=== PATIENT | male | born 1965 | race Caucasian/White ===

== ENCOUNTER 2025-03-06 09:14 | Emergency (ER) | payer SELFPAY ==
[2025-03-06] VITALS (30 sets, daily range): BP systolic 75–149; BP diastolic 55–102; PULSE 34–89; RESP 13–38; TEMP 36.2–36.4; O2SAT 68–100
--- NOTE | ~2025-03-06 | XR_ITS ---
CHEST RADIOGRAPH CLINICAL HISTORY: ETT placement . COMPARISON: None available TECHNIQUE: Single portable view of the chest. FINDINGS The superior cardiomediastinal silhouette is widened, possibly secondary to positioning. Endotracheal tube is identified with its tip at the thoracic inlet. Approximately 5 cm above the base of the deirdre. The remainder of the cardiomediastinal silhouette is otherwise unremarkable. 3 cm well-circumscribed asymmetry adjacent to the the right pulmonary hilum, possibly vascular in [place]. Coarse interstitial lung markings are identified. The right costophrenic sulcus is not included. The remainder of the lungs are clear. Significant gaseous distention of the stomach is visualized below the left hemidiaphragm. IMPRESSION: Endotracheal tube with its tip at the thoracic inlet approximately 5 cm above the base of the deirdre. Advancement of approximately 2 cm may be performed for optimal radiographic placement. Asymmetry adjacent to the right pulmonary hilum with coarse interstitial lung markings. Significant gaseous distention of the stomach, as detailed above. Reviewed, dictated and finalized at location A. IMPRESSION: Endotracheal tube with its tip at the thoracic inlet approximately 5 cm above t he base of the deirdre. Advancement of approximately 2 cm may be performed for optimal radiographic rylie cement. Asymmetry adjacent to the right pulmonary hilum with coarse interstitial lung m arkings. Significant gaseous distention of the stomach, as detailed above.
--- NOTE | ~2025-03-06 | CT_ITS ---
EXAMINATION: CT brain wo con DATE: 03/06/2025 09:47 INDICATION: Left-sided weakness, combative and confused. TECHNIQUE: Computed tomography (CT) of the head was performed without intravenous contrast. Sagittal and coronal reconstructions were performed. The mA was adjusted according to patient size. Iterative reconstruction technique was employed. The dose-length product was 1362.00 mGy-cm. COMPARISON: None FINDINGS: Large amount of motion artifact on the initial sequence. Moderate amount of motion artifact on the re peated sequences. Overall this mild to moderately limits evaluation. No acute intracranial hemorrhage , acute infarction or abnormal extra axial fluid collection. Ventricles are normal and symmetric. No mass/mass effect. The orbits, paranasal sinuses and mastoid air cells are normal. IMPRESSION: 1. No evident acute intracranial process. Evaluation is mild to moderately limited by motion artifact on the initial and repeat imaging. Reviewed, dictated and finalized at location A. IMPRESSION: 1. No evident acute intracranial process. Evaluation is mild to moderately limi aman by motion artifact on the initial and repeat imaging.
[2025-03-06] MEDS: SODIUM CHLORIDE 0.9% IV 1,000 ML 999 ML (09:20)
[2025-03-06] MEDS: LORazepam INJ (*CRX) 2 MG/ML VIAL IV PUSH (09:20)
--- NOTE | 2025-03-06 09:35 | ECG_ITS ---
Test Date: 2025-03-06 09:34:27 Measurements Intervals [place] Rate: 53 P: 55 AL: 177 QRS: 73 QRSD: 89 T: 68 QT: 480 QTc: 451 Interpretive Statements SINUS BRADYCARDIA VOLTAGE CRITERIA FOR LVH [MEETS CRITERIA IN ONE OF: R(aVL), S(V1), R(V5), R(V5/V6)+S(V1)] PROLONGED QT INTERVAL+ NONSPECIFIC T WAVE ABNORMALITY No previous ECG available for comparison Electronically Signed On 03-07-2025 10:58:55 CDT by Sharron Rosa M.D.
[2025-03-06 09:42] LABS: Basophils Absolute Auto 0.07 K/mm3 (0.00-0.10); Basophils Percent Auto 0.6 % (0.0-1.0); Eosinophils Absolute Auto 0.28 K/mm3 (0.02-0.50); Eosinophils Percent Auto 2.3 % (1.0-6.0); Hematocrit 44.7 % (40.0-54.0); Hemoglobin 14.1 g/dL (14.0-18.0); Immature Granulocyte Absolute 0.06 K/mm3 (0.00-0.00); Immature Granulocyte Percent A 0.5 % (0.0-0.0); Lymphocytes Absolute Auto 2.37 K/mm3 (1.10-4.50); Lymphocytes Percent Auto 19.8 % (18.0-42.0); Mean Corpuscular HGB Conc 31.5 g/dL (32-36); Mean Corpuscular Hemoglobin 29.3 pg (27.0-31.0); Mean Corpuscular Volume 92.7 fL (78.0-102.0); Mean Platelet Volume 9.5 fl (8.7-11.0); Monocytes Percent Auto 5.8 % (2.0-11.0); Platelet Count Result 195 K/mm3 (150-420); Red Blood Count 4.82 M/mm3 (4.70-6.10); Red Cell Distribution Width 12.7 % (11.6-14.4)
[2025-03-06] MEDS: SODIUM CHLORIDE 0.9% IV 1,000 ML 999 ML IV CONT ×2 (09:47→10:50)
[2025-03-06 09:49] LABS: Partial Thromboplastin Time 26.1 Sec (23.9-30.70); Prothrombin Time 11.3 Seconds (9.50-12.1)
[2025-03-06] MEDS: MORPHINE SULFATE (*CRX) 4 MG/ML INJ IV PUSH (09:52)
[2025-03-06 09:54] LABS: Ethanol < 10 mg/dL (<10)
[2025-03-06 10:17] LABS: Add Urine Microscopic? YES; Appearance Urine Clear (Clear); Bilirubin Urine Negative (Negative); Blood Urine 1+ (Negative); Color Urine Yellow (Yellow); Glucose Urine UA 1+ (Negative); Ketones Urine Negative (Negative); Leukocyte Esterase Ur Negative LEU/UL (Negative); Nitrate Urine Negative (Negative); Protein Urine 3+ (Negative); Urobilinogen Urine 0.2 mg/dL (0.2-1.0)
[2025-03-06 10:23] LABS: WBC Urine None seen /hpf (0-3)
[2025-03-06 10:24] LABS: Bacteria Urine Trace /hpf
[2025-03-06 10:28] LABS: Alanine Aminotransferase 20 U/L (6-50); Albumin Level 3.5 g/dL (3.5-5.1); Alkaline Phosphatase 48 U/L (38-126); Anion Gap 6 mmol/L (4-12); Aspartate Amino Transferase 33 U/L (17-59); Bilirubin,Total 0.7 mg/dL (0.2-1.3); Blood Urea Nitrogen 13 mg/dL (9-20); Calcium 8.4 mg/dL (8.4-10.2); Carbon Dioxide 22 mmol/L (22-30); Chloride 112 mmol/L (98-107); Estimated Glomerular Filt Rate > 60; Glucose 193 mg/dL (65-110); Osmolality Calculated 295 mOsm/kg (285-295); Potassium 3.8 mmol/L (3.4-5.0); Sodium 140 mmol/L (137-145); Total Protein 6.2 g/dL (6.3-8.2)
[2025-03-06 10:36] LABS: Base Excess ABG -3.9 mmol/L (0-2); Carboxyhemoglobin 2.2 % (0-1.5); HCO3 ABG 21.4 mmol/L (23-29); Methemoglobin ABG 0.3 % (0-1.5); Oxygen Saturation ABG 92.6 % (95-97); Oxyhemoglobin 90.3 % (94-100); PCO2 ABG 39.8 mmHg (35-45); PO2 ABG 60.9 mmHg (80-90); Reduced Hemoglobin 7.2 % (0-1.5); pH ABG 7.35 (7.35-7.45)
--- NOTE | 2025-03-06 10:36 | ED_ITS ---
HPI - Neuro Symptoms/Deficit General Chief Complaint: Suspected CVA Stated Complaint: Stroke Time Seen by Provider: 03/06/25 09:34 Source: patient and EMS Mode of arrival: EMS Limitations: altered mental status, physical limitation and clinical condition History of Present Illness HPI Narrative: this is a 59-year-old male with some difficult to elicit past medical history is a smoker, denies alcohol abuse no recent surgeries. The patient stepped outside of his trailer and was doing some stretching activities and had chest pain and felt brown with left-sided weakness arm and leg EMS was called to the scene. Currently the patient is aggressive and combative claustrophobic with any procedures. There is no fever chills, vitals are stable with a blood pressure of 103/68 with respiratory rate of 20 satting at 97% on room air. Patient has no nausea vomiting does have a gaze to the to the right with left arm left leg weakness. Onset (ago): hour(s) Timing confirmed by: other Location: left arm and left leg History of same: No Severity: severe Quality: weak and tingling Relieving factors: none Exacerbating factors: none Context: sudden onset Related Data Allergies Allergy/AdvReac Type Severity Reaction Status Date / Time Unable to Assess Allergy Verified 03/06/25 10:07 Review of Systems 2 Review of Systems: All systems reviewed & are unremarkable except as noted in HPI and below PMFSH Past Medical History Medical History Tobacco abuse Exam 2 Const: General: well developed, alert, awake, anxious, combative and confusion HENMT: Head: normal to inspection Face and sinus: normal facial exam M outh: Yes Normal oral and palatal mucosa present Eyes: Other: pupils right 4+ and sluggish in left is 3 and brisk Chest: Chest palpation & inspection: normal inspection of the chest and normal palpation of entire chest wall Resp: Effort & Inspection: normal respiratory effort and able to speak in complete sentences Cardio: Palpation: normal PMI Rate: regular rate Rhythm: regular rhythm Heart sounds: S1 normal heart sound present and S2 normal heart sound present : General: Yes bimanual renal exam normal bilaterally Back/Spine/Pelvis: Back: no CVA tenderness Skin: General skin exam: normal color and no rashes or lesions noted Neuro: General: absent sensation to monofilament and confusion Speech: A bnormal speech present Gait exam (Neuro): Unable to assess gait Motor exam (neuro): Pronator motor function present Extrem: General: normal to inspection and capillary refill normal Other: Left arm left leg weakness Psych: Speech and movement: Clear speech present Affect: Anxious affect present Course Course Emergency Course: patient with some stroke symptoms with left arm left leg weakness with NIH stroke scale of 8, patient aggressive and combative and claustrophobic did have a CT of the brain performed which shows no acute intracranial abnormalities or hemorrhage. Vitals at 103/68 with a febrile respiratory rate of 15 O2 sats of 95% on room air. PT INR of 11 and 1.0 with PTT of 26, patient did receive IV fluids along with Ativan 2mg IV and 4mg of morphine. And tPA was started on patient. Spoke to table machine operator and Neurology at [facility] that accepted the patient it will be flying via arch. Vital Signs Vital signs: Vital Signs Temperature 36.2 C L 03/06/25 10:26 Pulse Rate 72 03/06/25 10:26 Respiratory Rate 20 03/06/25 10:26 Blood Pressure 102/85 03/06/25 10:26 Pulse Oximetry 100 03/06/25 10:26 Oxygen Delivery Room Air 03/06/25 10:26 Temperature 36.2 C L 03/06/25 10:26 Pulse Rate 72 03/06/25 10:26 Respiratory Rate 20 03/06/25 10:26 Blood Pressure 102/85 03/06/25 10:26 Pulse Oximetry 100 03/06/25 10:26 Oxygen Delivery Room Air 03/06/25 10:26 MDM - Neuro Symptoms/Deficit Lab Data 03/06/25 09:35 03/06/25 09:35 Labs: Lab Results 03/06/25 03/06/25 Range/Units 09:34 09:35 WBC 12.0 H (4.8-10.8) K/mm3 RBC 4.82 (4.70-6.10) M/mm3 Hgb 14.1 (14.0-18.0) g/dL Hct 44.7 (40.0-54.0) % MCV 92.7 (78.0-102.0) fL MCH 29.3 (27.0-31.0) pg MCHC 31.5 L (32-36) g/dL RDW 12.7 (11.6-14.4) % Plt Count 195 (150-420) K/mm3 MPV 9.5 (8.7-11.0) fl Immature Gran % (Auto) 0.5 H (0.0-0.0) % Neut % (Auto) 71.0 H (50.0-70.0) % Lymph % (Auto) 19.8 (18.0-42.0) % [place] % (Auto) 5.8 (2.0-11.0) % Eos % (Auto) 2.3 (1.0-6.0) % Baso % (Auto) 0.6 (0.0-1.0) % Lymph # (Auto) 2.37 (1.10-4.50) K/mm3 [place] # (Auto) 0.70 (0.10-0.90) K/mm3 Eos # (Auto) 0.28 (0.02-0.50) K/mm3 Baso # (Auto) 0.07 (0.00-0.10) K/mm3 Abs Immat Gran (auto) 0.06 H (0.00-0.00) K/mm3 Absolute Neuts (auto) 8.50 H (1.70-7.20) K/mm3 Absolute Nucleated RBC 0.00 (0.00-0.00) K/mm3 Nucleated RBC % 0.0 (0-0.0) % PT 11.3 (9.50-12.1) Seconds INR 1.0 APTT 26.1 (23.9-30.70) Sec Sodium 140 (137-145) mmol/L Potassium 3.8 (3.4-5.0) mmol/L Chloride 112 H (98-107) mmol/L Carbon Dioxide 22 (22-30) mmol/L Anion Gap 6 (4-12) mmol/L BUN 13 (9-20) mg/dL Creatinine 0.92 (0.7-1.3) mg/dL Estim Creat Clear Calc Not Reportable Estimated GFR > 60 (59 - ) Glucose 193 H (65-110) mg/dL Calculated Osmolality 295 (285-295) mOsm/kg Calcium 8.4 (8.4-10.2) mg/dL Total Bilirubin 0.7 (0.2-1.3) mg/dL AST 33 (17-59) U/L ALT 20 (6-50) U/L Alkaline Phosphatase 48 (38-126) U/L Troponin I Pending Total Protein 6.2 L (6.3-8.2) g/dL Albumin 3.5 (3.5-5.1) g/dL Urine Color Yellow (Yellow) Urine Appearance Clear (Clear) Urine pH 8.0 (5.0-8.0) Ur Specific [place] 1.020 (1.010-1.020) Urine Protein 3+ H (Negative) Urine Glucose (UA) 1+ H (Negative) Urine Ketones Negative (Negative) Ur Blood (Man) 1+ H (Negative) Urine Nitrate Negative (Negative) Urine Bilirubin Negative (Negative) Urine Urobilinogen 0.2 (0.2-1.0) mg/dL Leukocyte Esterase Rfl Negative (Negative) LYNDA/UL Urine RBC 3-5 H (0-2) /hpf Urine WBC None seen (0-3) /hpf Urine Bacteria Trace (None) /hpf Hyaline Casts 1-2 (None) /lpf Urine Opiates Screen Pending Urine Methadone Screen Pending Ur Barbiturates Screen Pending Ur Phencyclidine Scrn Pending Ur Amphetamine Screen Pending U Benzodiazepines Scrn Pending Urine Cocaine Screen Pending U Cannabinoids Screen Pending Ethyl Alcohol < 10 (<10) mg/dL Critical Care Time Critical Care Time Critical Care Time: Yes Total Critical Care Time: 45 Discharge Plan Discharge Clinical Impression: Acute cerebrovascular accident (CVA) Patient Disposition: Acute Care Hospital Condition: Stable Patient Language: Setswana Follow-up/Referrals: Joaquim River DO [Primary Care Provider] - Time of Disposition: 10:56
[2025-03-06 10:38] LABS: Device ROOM AIR; Modified Allen's Test Pass; Site Drawn LEFT RADIAL
[2025-03-06 10:39] LABS: Troponin I 0.012 ng/mL (0.000-0.034)
[2025-03-06] MEDS: TENECTEPLASE 50 MG/10 ML VIAL (10:46)
[2025-03-06 11:17] LABS: Amphetamine Screen Urine Negative (Negative); Barbiturate Screen Urine Negative (Negative); Benzodiazepines Screen Urine Negative (Negative); Cocaine Screen Urine Negative (Negative)
[2025-03-06 11:18] LABS: Cannabinoid Screen Urine Positive (Negative); Methadone Screen Urine Negative (Negative); Opiate Screen Urine Positive (Negative); Phencyclidine Screen Urine Negative (Negative)
[2025-03-06] MEDS: KETAMINE HCL (*CRX) 500 MG/10 ML VIAL 60 MG IV PUSH (11:18)
[2025-03-06] MEDS: RAPID SEQUENCE INTUBATION KIT 1 EACH (11:19)
[2025-03-06] MEDS: PROPOFOL IV EMULSION 100 ML 2.65 MG IV CONT (11:30)
== END 2025-03-06 11:45 | disposition short-term general hospital (02) ==
PROVIDERS: Emergency Provider Emergency Medicine; PCP Family Medicine
DX: I63.9 Cerebral infarction, unspecified (principal)
CPT/HCPCS: 31500; 36415; 36600; 70450; 80053; 80307; 81001; 82077; 82375; 82805; 83050; 84484; 85018; 85025; 85610; 85730; 93005; 96374; 96375; 99285; J0330; J2060; J2270; J2704; J3101; J7030